=== PATIENT | female | born 1990 | race Hispanic/Latino ===

== ENCOUNTER 2017-08-25 18:31 | Emergency (ER) | payer OTHER | END 2017-08-25 19:10 | disposition home or self-care (01) | LOC: ERS 18:31 | DX: K43.9 Ventral hernia without obstruction or gangrene (principal) | CPT/HCPCS: 99283 ==

== ENCOUNTER 2020-05-25 09:54 | Emergency (ER) | payer SELFPAY ==
--- NOTE | 2020-05-25 12:52 | RAD ---
PA CHEST: INDICATION: Chest pain. FINDINGS: Lungs are clear. Heart and mediastinum appear normal. Vasculature normal. IMPRESSION: No acute finding. POS: AGW
[2020-05-25 13:02] LABS: #Basophils 0.1 thou/uL (0.0-0.2); #Eosinphils 0.3 thou/uL (0.0-0.7); #Lymphocytes 1.8 thou/uL (1.20-3.40); #Monocytes 0.4 thou/uL (0.11-0.59); #Neutrophils 3.9 thou/uL (1.40-6.50); %Eosinophils 5.2 % (0.0-10.0); %Lymphocytes 27.6 % (21.0-51.0); %Monocytes 6.2 % (0.0-10.0); Hemoglobin 14.7 g/dL (12.0-16.0); Mean Corpuscular HGB CONC 31.8 g/dL (32.0-36.0); Mean Corpuscular Hemoglobin 29.4 pg (27.0-31.0); Mean Corpuscular Volume 92.5 fL (78.0-98.0); Mean Platelet Volume 7.5 fL (7.4-10.4); Platelet Count 230 thou/uL (130-400); RBC Distribution Width 11.7 % (11.5-14.5); Red Blood Cell (RBC) Count 5.01 mill/uL (4.20-5.40); White Blood Cell (WBC) Count 6.5 thou/uL (4.8-10.8)
[2020-05-25] MEDS ORDERED: Ibuprofen 800 MG TAB ONE (13:06)
[2020-05-25 13:23] LABS: ALT (SGPT) 28 U/L (8-55); AST (SGOT) 22 U/L (5-34); Albumin 4.3 g/dL (3.5-5.0); Alkaline Phosphatase 85 U/L (40-110); Anion Gap 12 mmol/L (10-20); BUN (Urea Nitrogen) 10 mg/dL (7.0-18.7); Bilirubin, Total 0.5 mg/dL (0.2-1.2); Calc. Creatinine Clearance 0 mL/min (70-130); Calcium 9.2 mg/dL (7.8-10.44); Carbon Dioxide 26 mmol/L (22-29); Chloride 106 mmol/L (98-107); Estimated GFR-MDRD Greater than 90; Globulin 3.1 g/dL (2.4-3.5); Glucose 89 mg/dL (70-105); Potassium 4.2 mmol/L (3.5-5.1); Protein, Total 7.4 g/dL (6.0-8.3); Sodium 140 mmol/L (136-145)
--- NOTE | 2020-05-28 15:19 | EKG ---
Test Reason : Blood Pressure : / mmHG Vent. Rate : 061 BPM Atrial Rate : 061 BPM P-R Int : 162 ms QRS Dur : 084 ms QT Int : 386 ms P-R-T Axes : 058 031 032 degrees QTc Int : 388 ms Normal sinus rhythm Normal ECG Confirmed by TURNER PANG ([id number]), content editor CHONG JOHNSON ([id number]) on 05/28/2020 3:19:15 PM Referred By: Confirmed By:TURNER Ayala
== END 2020-05-25 13:26 | disposition home or self-care (01) ==
LOC: ERS 09:54
DX: R07.9 Chest pain, unspecified (principal)
CPT/HCPCS: 36415; 71045; 80053; 85025; 93005